=== PATIENT | female | born 1990 | race African-American/Black ===

== ENCOUNTER 2020-10-01 17:54 | Emergency (ER) | payer MEDICAID ==
[2020-10-02 17:30] LABS: SARS-CoV-2 MS2 Positive; SARS-CoV-2 N Gene Negative; SARS-CoV-2 S Gene Negative; SARS-CoV-2 by NAA Not Detected (NotDetected); SARS-CoV-2 orf1ab Negative
== END 2020-10-01 20:35 | disposition home or self-care (01) ==
LOC: ERS 17:54
DX: R52 Pain, unspecified (principal); Z20.828 Contact with and (suspected) exposure to other viral communicable diseases
CPT/HCPCS: 87635; 99283; U0003

== ENCOUNTER 2020-10-13 19:35 | Emergency (ER) | payer MEDICAID ==
[2020-10-13 20:10] LABS: Bilirubin Negative (Negative); Blood, Urine Negative (Negative); Clarity Clear (Clear); Glucose, Urine (Dipstick) Normal (Negative); Ketone, Urine Negative (Negative); Leukocyte Negative Leu/uL (Negative); Nitrite Negative (Negative); Protein, Urine (Dipstick) Negative (Neg-Trace); Specific Gravity, Urine 1.025 (1.002-1.036); Urobilinogen Normal mg/dL (Less than 2); pH, Urine 6.5 (5.0-9.0)
[2020-10-13 20:13] LABS: Pregnancy Test - Urine (BHCG) Negative (Negative); Pregu Control Background? CLEAR/WHITE (CLR/WHITE); Pregu Control Bar Appear? YES (CONTROL BAR); Specific Gravity 1.025 (1.002-1.036)
[2020-10-13] MEDS ORDERED: Ketorolac Tromethamine 30 MG/ML VIAL ONE (20:34)
[2020-10-13] MEDS ORDERED: Ondansetron ODT 8 MG TAB ONE (21:17)
== END 2020-10-13 21:27 | disposition home or self-care (01) ==
LOC: ERS 19:35
DX: R10.13 Epigastric pain (principal); R19.7 Diarrhea, unspecified
CPT/HCPCS: 81003; 81025; 96372; 99284; J1885; Q0162

== ENCOUNTER 2020-12-21 14:58 | Emergency (ER) | payer MEDICAID, OTHER ==
[2020-12-21 23:50] LABS: SARS-CoV-2 PCR by NAA Not Detected (NotDetected)
== END 2020-12-21 15:33 | disposition home or self-care (01) ==
LOC: ERS 14:58
DX: Z20.822 Contact with and (suspected) exposure to COVID-19 (principal)
CPT/HCPCS: 87635; 99282; U0003; U0005

== ENCOUNTER 2021-04-29 11:42 | Emergency (ER) | payer MEDICAID, OTHER ==
[2021-04-29 12:13] LABS: Bilirubin Negative (Negative); Blood, Urine Negative (Negative); Clarity Clear (Clear); Glucose, Urine (Dipstick) Normal (Negative); Ketone, Urine Negative (Negative); Leukocyte Negative Leu/uL (Negative); Nitrite Negative (Negative); Protein, Urine (Dipstick) Negative (Neg-Trace); Specific Gravity, Urine 1.018 (1.002-1.036); Urobilinogen Normal mg/dL (Less than 2)
[2021-04-29 12:19] LABS: #Eosinphils 0.1 thou/uL (0.0-0.7); #Lymphocytes 2.1 thou/uL (1.20-3.40); #Monocytes 0.4 thou/uL (0.11-0.59); #Neutrophils 8.7 thou/uL (1.40-6.50); %Basophils 0.2 % (0.0-1.0); %Eosinophils 0.8 % (0.0-10.0); %Monocytes 3.1 % (0.0-10.0); %Neutrophils 76.9 % (42.0-75.0); Hemoglobin 11.1 g/dL (12.0-16.0); Mean Corpuscular Hemoglobin 25.1 pg (27.0-31.0); Mean Corpuscular Volume 76.1 fL (78.0-98.0); Mean Platelet Volume 6.5 fL (7.4-10.4); Platelet Count 330 thou/uL (130-400); RBC Distribution Width 16.5 % (11.5-14.5); Red Blood Cell (RBC) Count 4.42 mill/uL (4.20-5.40); White Blood Cell (WBC) Count 11.3 thou/uL (4.8-10.8)
[2021-04-29 12:43] LABS: ALT (SGPT) 20 U/L (8-55); AST (SGOT) 11 U/L (5-34); Albumin 3.4 g/dL (3.5-5.0); Alkaline Phosphatase 104 U/L (40-110); Anion Gap 11 mmol/L (10-20); BUN (Urea Nitrogen) 5 mg/dL (7.0-18.7); Bilirubin, Total 0.4 mg/dL (0.2-1.2); Calc. Creatinine Clearance 0 mL/min (70-130); Calcium 8.8 mg/dL (7.8-10.44); Carbon Dioxide 22 mmol/L (22-29); Chloride 106 mmol/L (98-107); Globulin 4.2 g/dL (2.4-3.5); Glucose 100 mg/dL (70-105); Potassium 3.6 mmol/L (3.5-5.1); Protein, Total 7.6 g/dL (6.0-8.3); Sodium 135 mmol/L (136-145)
[2021-04-29] MEDS ORDERED: HYDROcodone/Acetaminophen 5/325 mg Tablet ONE (12:53)
[2021-04-29] MEDS ORDERED: Ondansetron PF 4 MG/2 ML Vial ONE (14:24)
== END 2021-04-29 14:31 | disposition home or self-care (01) ==
LOC: ERS 11:42
DX: O99.891 Other specified diseases and conditions complicating pregnancy (principal); M54.5 Low back pain; Z3A.01 Less than 8 weeks gestation of pregnancy
CPT/HCPCS: 36415; 80053; 81003; 85025; 87077; 87086; J2405

== ENCOUNTER 2021-05-23 10:02 | Emergency (ER) | payer OTHER | END 2021-05-23 10:39 | disposition home or self-care (01) | LOC: ERS 10:02 | DX: L50.0 Allergic urticaria (principal); Z79.899 Other long term (current) drug therapy | CPT/HCPCS: 99282 ==